=== PATIENT | male | born 1930 | race Caucasian/White ===

== ENCOUNTER 2017-05-06 16:53 | Observation (INO) | payer OTHER ==
[~2017-05-06] VITALS: Ht 170.2 cm; Wt 68.0 kg
--- NOTE | ~2017-05-06 | H ---
[address] [address] HISTORY AND PHYSICAL Name: KURT ROCHA Room: [address] Elvia Anthony#: [id number] Admission: 05/07/17 Attend Phys: Franklyn Clark DO Discharge: 05/07/17 Date of : 32 Report #: [id number] THIS REPORT FOR: //name// For History and Physical please refer to the electronic consultation note in the patient's medical record. By: [id number] Records Staff ROD /EDDIE
[2017-05-06 17:01] VITALS: BP 152/62
[2017-05-06] MEDS ORDERED: LIPITOR40 MG PO (17:21)
[2017-05-06] MEDS ORDERED: FLOMAX0.4 MG PO (17:21)
[2017-05-06] MEDS ORDERED: PROSCAR 5MG TABL5 MG PO (17:21)
[2017-05-06] MEDS ORDERED: LOPRESSOR25 PO (17:22)
[2017-05-06] MEDS ORDERED: SYMBICORT160 MCG/4. INH (17:22)
[2017-05-06 17:26] LABS: ABSOLUTE EOSINOPHILS 0.2 thou/uL (0.0-0.7); ABSOLUTE LYMPHOCYTES 2.5 thou/uL (0.8-5.3); ABSOLUTE MONOCYTES 0.6 thou/uL (0.0-1.2); ABSOLUTE NEUTROPHILS 5.9 thou/uL (1.6-8.1); BASOPHILS 0.5 %; HEMATOCRIT 36.5 % (42.0-52.0); HEMOGLOBIN 12.3 gm/dL (14.0-18.0); LYMPHOCYTES 27.2 %; MCH 30.7 pg (26.0-34.0); MCHC 33.8 g/dL (28.0-37.0); MCV 90.7 fL (80.0-100.0); MONOCYTES 6.5 %; MPV 7.3 fl. (7.2-11.1); NUCLEATED RBCS 0 /100WBC; PLATELET COUNT* 187 thou/uL (150-400); POLYS 63.8 %; RBC 4.02 mil/uL (4.50-6.00); RDW-CV 13.6 % (10.5-14.5); WBC 9.2 thou/uL (4.0-11.0)
[2017-05-06 17:35] LABS: CALCIUM 8.6 mg/dL (8.5-10.1); CREATININE 1.2 mg/dL (0.6-1.3); POTASSIUM 4.2 mmol/L (3.5-5.1)
[2017-05-06 17:35] LABS: URINE BILIRUBIN NEGATIVE (Negative); URINE BLOOD NEGATIVE (Negative); URINE CLARITY CLEAR; URINE COLOR YELLOW; URINE GLUCOSE-RANDOM NEGATIVE (Negative); URINE KETONES NEGATIVE (Negative); URINE LEUKOCYTES-REFLEX NEGATIVE (Negative); URINE NITRITE-REFLEX NEGATIVE (Negative); URINE PROTEIN NEGATIVE (Negative); URINE SPECIFIC GRAVITY 1.015 (1.005-1.030); URINE UROBILINOGEN 0.2 E.U./dl (0.2-1.0)
[2017-05-06 17:40] LABS: ALBUMIN 3.8 g/dL (3.4-5.0); TOTAL BILIRUBIN 0.4 mg/dL (<0.1-1.0); TOTAL PROTEIN 6.7 g/dL (6.4-8.2)
[2017-05-06 23:32] VITALS: BP 122/58
[2017-05-07 02:00] VITALS: BP 116/48
[2017-05-07 04:31] LABS: ABSOLUTE BASOPHILS 0.1 thou/uL (0.0-0.2); ABSOLUTE EOSINOPHILS 0.2 thou/uL (0.0-0.7); ABSOLUTE LYMPHOCYTES 2.3 thou/uL (0.8-5.3); ABSOLUTE MONOCYTES 0.4 thou/uL (0.0-1.2); ABSOLUTE NEUTROPHILS 3.8 thou/uL (1.6-8.1); BASOPHILS 0.8 %; EOSINOPHILS 2.4 %; HEMOGLOBIN 11.2 gm/dL (14.0-18.0); LYMPHOCYTES 34.4 %; MCH 30.8 pg (26.0-34.0); MCHC 33.8 g/dL (28.0-37.0); MCV 90.9 fL (80.0-100.0); MONOCYTES 5.9 %; MPV 7.5 fl. (7.2-11.1); NUCLEATED RBCS 0 /100WBC; PLATELET COUNT* 160 thou/uL (150-400); POLYS 56.5 %; RBC 3.63 mil/uL (4.50-6.00); RDW-CV 13.7 % (10.5-14.5); WBC 6.7 thou/uL (4.0-11.0)
[2017-05-07 04:52] LABS: CALCIUM 8.2 mg/dL (8.5-10.1); POTASSIUM 4.1 mmol/L (3.5-5.1)
[2017-05-07 08:15] VITALS: BP 115/50
[2017-05-07 09:48] VITALS: BP 115/50
[2017-05-07] MEDS ORDERED: MIRALAX17 GM PO (09:57)
[2017-05-07] MEDS ORDERED: COLACE100 MG PO (09:58)
[2017-05-07] MEDS ORDERED: NORCO 5-325 TA1 EACH PO (09:59)
--- NOTE | 2017-05-11 10:53 | S ---
[address] [address] SURGICAL PATH RPT PROCEDURE Name: KURT URIBE [address]#: [id number] Admission: 05/07/17 Date of : 32 Discharge: 05/07/17 Report #: [id number] Path Case #: [id number] PATHOLOGY REPORT COLLECTION DATE: 05/07/2017 RECEIVED DATE: 05/07/2017 SUBMITTING PHYS: Dr. Franklyn Clark OTHER PHYS: Dr. Harish Espinoza SPECIMEN(S) RECEIVED: A.Appendix * * * * * * * * * * * * FINAL DIAGNOSIS: Appendix, "appendix, appendectomy": - Acute suppurative appendicitis with acute inflammation extending into the periappendiceal fat. (SHA:magno; 05/11/2017) PATHOLOGIST: Morales Chapman M.D. REPORT ELECTRONICALLY SIGNED BY: Morales Chapman M.D. DATE/TIME: 05/11/2017 10:52 * * * * * * * * * * * * GROSS PATHOLOGY: Received in formalin labeled "Kurt Uribe, appendix," is an appendix measuring 2.1 cm in length and up to 1.6 cm in diameter with a small amount of attached mesoappendix. The serosal surface is yeung-rader in appearance with moderate vasculature. Sectioning reveals a dilated lumen filled with fecal material. 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 (CAA; 05/08/2017) CLINICAL HISTORY: Acute appendicitis INITIAL CPT CODE(S): A; 43591 Professional services performed by [facility] at [facility] [address] [place] [address] Technical services performed by [facility] at [address] [place] [address] SURGICAL PATH RPT PROCEDURE Name: KURT URIBE Room: [address] Elvia Anthony#: [id number] Admission: 05/07/17 Date of : 32 Discharge: 05/07/17 Report #: [id number] Path Case #: [id number] [place] [address]. [facility] [address] [place] [address] PHONE: [phone] DIRECTOR: Ronaldo Gallegos M.D. * * * END OF REPORT * * *
--- NOTE | 2017-05-26 10:58 | OP ---
[address] [address] OPERATIVE REPORT Name: KURT ROCHA Room: [address] Elvia Anthony#: [id number] Admission: 05/07/17 Attend Phys: Franklyn Clark DO Discharge: 05/07/17 Date of : 32 Report #: [id number] THIS REPORT FOR: //name// CC: Franklyn Espinoza MD DICTATED BY: Kiran Vega DO PREOPERATIVE DIAGNOSIS: Acute appendicitis. POSTOPERATIVE DIAGNOSIS: Acute appendicitis. SURGEON: Franklyn Clark DO EKG MONITOR: Kiran Vega, PGY-1. OPERATION PERFORMED: Laparoscopic appendectomy. ANESTHESIA: General. ESTIMATED BLOOD LOSS: 20 mL SPECIMEN REMOVED: Appendix. COMPLICATIONS: None. INDICATIONS: The patient is a pleasant 86-year-old male who presented to [facility] Emergency Department with complaint of right lower quadrant abdominal pain for the past day. He states that his pain has been increasing in severity. CT scan showed signs of inflammation in the right lower quadrant around the base of the appendix and cecum consistent with findings of early acute appendicitis. After discussion of treatment, it was advised that he undergo a laparoscopic appendectomy. All risks and complications were discussed to include bleeding, infection, injury to surrounding structures, risk of cardiopulmonary compromise, risk of open procedure, and risk of anesthesia. He acknowledges understanding and agreed to proceed with surgery. DESCRIPTION OF PROCEDURE: After consent was obtained, the patient was taken to the operating room and placed in supine position. SCDs were placed on bilateral lower extremities, 900 of clindamycin was given preoperatively. General endotracheal intubation was then performed without any complication. Anesthesia was administered. The patient was then prepped and draped in the usual sterile fashion. Timeout was performed to confirm patient and procedure. A midline supraumbilical incision was then made with a scalpel down to subcutaneous tissue. [employer] retractors were then used to blunt dissect further down to subcutaneous tissue. Electrocautery was used to score the fasc[place] [address] OPERATIVE REPORT Name: KURT ROCHA Room: [address] Elvia Anthony#: [id number] Admission: 05/07/17 Attend Phys: Franklyn Clark DO Discharge: 05/07/17 Date of : 32 Report #: [id number] then grasped using Jodi's. Hemostat was used to bluntly enter into the abdominal cavity, 0 Vicryl stitch was placed on either ends of the fascia. A 10 mm Liyah trocar was then inserted into the abdomen and secured. Insufflation was initiated. A camera was then entered into the abdomen and the abdomen was evaluated. No significant abnormalities were seen. A second trocar was placed suprapubically under direct visualization. Laparoscopic Randy was used to move the small bowel medial and cephalad. The cecum was identified and the appendix was then found to be at the base of the cecum. The patient was placed in Trendelenburg. Another trocar was then placed in the left lower quadrant under direct visualization. The appendix was lifted and Harmonic scalpel was used to dissect through the mesoappendix. After the base of the appendix was identified coming into the cecum, a 45 blue load Endo-RONAK stapler was used along the base of the appendix. The appendix was then placed in an EndoCatch bag and the staple line was evaluated for hemostasis. Once hemostasis was ensured, the suprapubic and left lower quadrant ports were removed under direct visualization and again to ensure hemostasis. Some omentum was then pushed down into the right lower quadrant. Insufflation was released and the supraumbilical port was removed along with the EndoCatch bag with the appendix. The midline supraumbilical incision fascia was then closed with 0 Vicryl in a xkbbvi-il-bkbkn fashion. All skin incisions were closed with 4-0 Monocryl. All incisions were dressed with Steri-Strips and Tegaderms with gauze over top. The patient tolerated the procedure well. All counts were correct. The patient was then transferred to PACU in stable condition. <ELECTRONICALLY SIGNED> By: Franklyn Clark DO 05/26/17 [id number] Clark DO /nt
== END 2017-05-07 10:50 | disposition home or self-care (01) ==
LOC: M.SUR 16:53 → M.ERS 16:53 → M.SUR 23:32 → M.3W 05-07 00:44
PROVIDERS: Nurse Practitioner Family; ADMIT Surgery
DX: K35.80 Unspecified acute appendicitis (principal); J18.9 Pneumonia, unspecified organism; I10 Essential (primary) hypertension; Z96.649 Presence of unspecified artificial hip joint; Z90.89 Acquired absence of other organs; Z85.46 Personal history of malignant neoplasm of prostate; Z98.890 Other specified postprocedural states

== ENCOUNTER → 2018-01-18 | Outpatient (CLI) | payer OTHER ==
[~2018-01-18] MED LIST: COLACE100 MG PO; FLOMAX0.4 MG PO; LIPITOR40 MG PO; LOPRESSOR25 PO; MIRALAX17 GM PO; NORCO 5-325 TA1 EACH PO; PROSCAR 5MG TABL5 MG PO; SYMBICORT160 MCG/4. INH
== END ==
LOC: M.RAD 10:12
DX: S52.572A Other intraarticular fracture of lower end of left radius, initial encounter for closed fracture (principal); W19.XXXA Unspecified fall, initial encounter; Y93.89 Activity, other specified; Y92.89 Other specified places as the place of occurrence of the external cause; Y99.8 Other external cause status